=== PATIENT | female | born 1960 | race Caucasian/White ===

== ENCOUNTER 2017-03-29 19:57 | Emergency (ER) | payer OTHER ==
[~2017-03-29] VITALS: Ht 157.5 cm; Wt 94.3 kg
[~2017-03-29 19:57] MED LIST: DUL5 PO; HYDROCHLOROTHIAZIDE; HYDROCHLOROTHIAZIDE PO; METFORMIN; METFORMIN PO; NOR10T PO; OSCD PO; SIMVASTATIN20 M1 PO; VIT C; XERALTO; XERALTO PO; [UNRECOGNIZED DRUG - OTHER]; [UNRECOGNIZED DRUG - OTHER]
[2017-03-29 20:35] VITALS: BP 164/86
== END 2017-03-29 20:35 | disposition home or self-care (01) ==
LOC: ED 19:57
DX: H66.92 Otitis media, unspecified, left ear (principal); I10 Essential (primary) hypertension; E11.9 Type 2 diabetes mellitus without complications; Z88.8 Allergy status to other drugs, medicaments and biological substances; Z79.84 Long term (current) use of oral hypoglycemic drugs; Z79.01 Long term (current) use of anticoagulants

== ENCOUNTER 2017-04-01 17:30 | Emergency (ER) | payer OTHER ==
[2017-04-01 17:48] VITALS: BP 149/74
== END 2017-04-01 20:16 | disposition home or self-care (01) ==
LOC: ED 17:30
DX: G44.009 Cluster headache syndrome, unspecified, not intractable (principal); I10 Essential (primary) hypertension; E11.9 Type 2 diabetes mellitus without complications

== ENCOUNTER 2018-10-10 11:12 | Emergency (ER) | payer OTHER ==
[~2018-10-10] VITALS: Ht 157.5 cm; Wt 99.3 kg
[2018-10-10 11:19] VITALS: Ht 157.5 cm; Wt 99.3 kg
[2018-10-10 13:46] VITALS: BP 129/89
== END 2018-10-10 14:01 | disposition home or self-care (01) ==
LOC: ED 11:12
DX: M54.5 Low back pain (principal); I10 Essential (primary) hypertension; E11.9 Type 2 diabetes mellitus without complications; Z88.8 Allergy status to other drugs, medicaments and biological substances
CPT/HCPCS: J3010

== ENCOUNTER 2020-03-24 16:14 | Emergency (ER) | payer OTHER ==
[~2020-03-24] VITALS: Ht 157.5 cm; Wt 109.3 kg
[2020-03-24 20:34] VITALS: BP 125/63
== END 2020-03-24 20:34 | disposition home or self-care (01) ==
LOC: ED 16:14
DX: S86.912A Strain of unspecified muscle(s) and tendon(s) at lower leg level, left leg, initial encounter (principal); X58.XXXA Exposure to other specified factors, initial encounter; Y93.89 Activity, other specified; Y92.89 Other specified places as the place of occurrence of the external cause; Y99.8 Other external cause status
CPT/HCPCS: J1885

== ENCOUNTER 2020-05-28 17:31 | Emergency (ER) | payer OTHER ==
[~2020-05-28] VITALS: Ht 157.5 cm; Wt 107.5 kg
[2020-05-28 17:36] VITALS: Ht 157.5 cm; Wt 107.5 kg
[2020-05-28 18:10] LABS: BASOPHIL % 0.7 % (0-2); PLATELET COUNT 284 x10^3mcL (130-400); RED CELL DISTRIBUTION WIDTH 15.8 % (11.5-14.5)
[2020-05-28 18:30] LABS: CALCIUM 9.3 mg/dL (8.5-10.1); CARBON DIOXIDE 29.4 mmol/L (21-32); CHLORIDE SERUM 103 mmol/L (98-107); CREATININE SERUM 0.9 mg/dL (0.6-1.0); GFR1 > 60 mL/min; GLUCOSE SERUM 159 mg/dL (74-106); POTASSIUM SERUM 3.7 mmol/L (3.5-5.1); SODIUM SERUM 141 mmol/L (136-145)
[2020-05-28 18:35] LABS: ALBUMIN 3.6 g/dL (3.4-5.0); ALKALINE PHOSPHATASE 82 U/L (46-116); ALT/SGPT 24 U/L (14-59); AST/SGOT 28 U/L (15-37); BILIRUBIN TOTAL 0.3 mg/dL (0.20-1.00)
[2020-05-28 20:54] VITALS: BP 145/74
== END 2020-05-28 20:54 | disposition home or self-care (01) ==
LOC: ED 17:31
PROVIDERS: Emergency Medicine
DX: R07.89 Other chest pain (principal); I10 Essential (primary) hypertension; E11.9 Type 2 diabetes mellitus without complications; R20.0 Anesthesia of skin; R06.02 Shortness of breath; R11.0 Nausea; Z88.8 Allergy status to other drugs, medicaments and biological substances; Z98.890 Other specified postprocedural states